=== PATIENT | female | born 1990 | race African-American/Black ===

== ENCOUNTER 2017-04-13 08:25 | Inpatient (IN) | payer OTHER ==
[2017-04-13] VITALS (7 sets, daily range): BP systolic 101–145; BP diastolic 56–76
[~2017-04-13] VITALS: Ht 167.6 cm; Wt 93.2 kg
[2017-04-13 09:47] LABS: EOSINOPHIL (%) 0.8 % (0-5); EOSINOPHIL COUNT 0.1 K/uL (0-0.3); HEMATOCRIT 32.9 % (36.0-46.0); IMMATURE GRANULOCYTE (%) 0.6 % (0.0-0.7); INSTRUMENT ABS NEUTROPHIL CT 4.4 K/uL; LYMPHOCYTE COUNT 1.3 K/uL (1.0-2.8); MCH 25.3 PG (29.0-34.0); MCHC 30.7 G/DL (30.0-36.0); MCV 82.5 FL (83-99); MEAN PLAT.VOLUME 11.4 uM^3 (9.5-12.4); MONOCYTE (%) 8.5 % (3-12); MONOCYTE COUNT 0.5 K/uL (0-0.8); NEUTROPHIL (%) 69.5 % (45-76); NEUTROPHIL COUNT 4.4 K/uL (1.8-6.4); PLATELET COUNT 284 K/uL (156-360); RBC DIS.WIDTH-CV 13.6 % (11.8-14.6); RBC DIS.WIDTH-SD 41.1 % (39-53); RED BLOOD COUNT 3.99 M/uL (3.80-5.20); WHITE BLOOD COUNT 6.4 K/uL (4.1-10.2)
[2017-04-13 10:41] LABS: AMPHETAMINE NEGATIVE (500 ng/mL); BARBITURATES NEGATIVE (200 ng/mL); BENZODIAZEPINES NEGATIVE (150 ng/mL); COCAINE NEGATIVE (150 ng/mL); INTERNAL CONTROLS VALID? YES; METHADONE NEGATIVE (200 ng/mL); METHAMPHETAMINE NEGATIVE (500 ng/mL); OPIATES (MORPHINE) NEGATIVE (100 ng/mL); OXYCODONE NEGATIVE (100 ng/mL); PHENCYCLIDINE NEGATIVE (25 ng/mL); PROPOXYPHENE NEGATIVE (300 ng/mL); THC CANNABINOIDS PRESUMPTIVE POSITIVE (50 ng/mL); TRICYCLIC ANTIDEPRESSANTS NEGATIVE (300 ng/mL)
[2017-04-13 10:43] LABS: ADD MEDTOX COMMENT Y
[2017-04-13] MEDS ORDERED: PERCOCET 5/31 TABLET PO (15:02)
[2017-04-13] MEDS ORDERED: MOTRIN800 MG PO (15:02)
[2017-04-14 01:36] VITALS: BP 103/59
[2017-04-14 07:11] LABS: EOSINOPHIL (%) 0.1 % (0-5); IMMATURE GRANULOCYTE (%) 0.6 % (0.0-0.7); IMMATURE GRANULOCYTE COUNT 0.1 K/uL; INSTRUMENT ABS NEUTROPHIL CT 9.7 K/uL; LYMPHOCYTE COUNT 1.3 K/uL (1.0-2.8); MCH 27.1 PG (29.0-34.0); MCHC 32.7 G/DL (30.0-36.0); MCV 82.8 FL (83-99); MEAN PLAT.VOLUME 11.3 uM^3 (9.5-12.4); MONOCYTE (%) 6.9 % (3-12); MONOCYTE COUNT 0.8 K/uL (0-0.8); NEUTROPHIL (%) 81.4 % (45-76); NEUTROPHIL COUNT 9.7 K/uL (1.8-6.4); PLATELET COUNT 244 K/uL (156-360); RBC DIS.WIDTH-CV 13.7 % (11.8-14.6)
[2017-04-14 07:15] LABS: RED BLOOD COUNT 3.14 M/uL (3.80-5.20)
[2017-04-14 07:34] VITALS: BP 100/48
[2017-04-14 11:46] VITALS: BP 101/47
[2017-04-14 15:25] VITALS: BP 100/59
[2017-04-14 20:13] VITALS: BP 121/78
[2017-04-14 22:59] VITALS: BP 110/66
[2017-04-15 07:40] VITALS: BP 115/76
[2017-04-15 11:07] VITALS: BP 123/77
[2017-04-15 15:01] VITALS: BP 131/57
[2017-04-15 23:29] VITALS: BP 121/67
[2017-04-16 09:04] VITALS: BP 115/68
[2017-04-16 15:03] VITALS: BP 116/64
[2017-04-17 07:22] VITALS: BP 116/77
[2017-04-17] MEDS ORDERED: FEOSOL325 MG PO (07:50)
== END 2017-04-17 13:55 | disposition home or self-care (01) | DRG 765 ==
LOC: 2WEST 08:25 → 2SOUTH 13:50 → 2WEST 04-17 13:55
PROVIDERS: Advanced Practice Midwife; Obstetrics & Gynecology
PROC: 10D00Z1 Extraction of Products of Conception, Low, Open Approach (ICD-10-PCS; principal; 2017-04-13)
DX: O34.211 Maternal care for low transverse scar from previous cesarean delivery (principal); O99.02 Anemia complicating childbirth; D62 Acute posthemorrhagic anemia; O77.0 Labor and delivery complicated by meconium in amniotic fluid; O69.81X0 Labor and delivery complicated by cord around neck, without compression, not applicable or unspecified; O99.324 Drug use complicating childbirth; F12.90 Cannabis use, unspecified, uncomplicated; Z3A.40 40 weeks gestation of pregnancy; Z37.0 Single live birth; Z87.891 Personal history of nicotine dependence
CPT/HCPCS: 84999; 85025; 86850; 86900; 86901; J0690; J1100; J1885; J2274; J2405; J2765; J7120